=== PATIENT | male | born 1985 | race Caucasian/White ===

== ENCOUNTER → 2019-04-20 | Emergency (ER) | payer MEDICAID ==
[2019-04-20] MEDS: DIAZEPAM 5 MG TAB PO (09:47)
[2019-04-20] MEDS: DEXAMETHASONE 10 MG/ML 1 ML INJ IM (09:47)
[2019-04-20] MEDS: KETOROLAC 60 MG INJ IM (09:47)
== END | disposition home or self-care (01) ==
LOC: FTE 08:56
DX: M54.5 Low back pain (principal)
CPT/HCPCS: 96372; 99284-25